=== PATIENT | male | born 1985 | race Two or more races ===

== ENCOUNTER 2024-02-25 09:35 | Outpatient (CLI) | payer OTHER, SELFPAY ==
--- OUTSIDE RECORDS SUMMARY | 2024-02-25 09:39 | XMS_ITS | Clinical Summary ---
Author Organization [employer] [facility] Address [place], [place] [address] Care Team Providers Care Shot Bagger Name Role Phone Clinic, [facility] Primary [facility] Pro vider Allergies No known active allergies Medications Medication Sig Dispensed Refills Start Date End Date Status omeprazole (PRILOSEC) 20 mg Delayed-Release capsuleIndications:O dynophagia Take 1 capsule by mouth once daily before a meal. 30 capsule 07/24/2016 Active ibuprofen (ADVIL; MOTRIN) 200 mg tablet Take 200 mg by mouth 4 times daily if needed. Active diazePAM (VALIUM) 10 mg tabletIndications:Ac zuni right-sided low back pain without sciatica Take 1 tablet by mouth every 6 hours if needed. 10 tablet 10/05/2016 Active ibuprofen (ADVIL; MOTRIN) 400 mg tabletIndications:Ac zuni right-sided low back pain without sciatica Take 1 tablet by mouth 4 times daily if needed. 30 tablet 10/05/2016 Active Social History Tobacco Use Types Packs/Day Years Used Date Smoking Tobacco: Every Day Tobacco Cessation:Ready to Q uit: No; Counseling Given: Yes Alcohol Use Standard Drinks/Week Comments No 0 (1 standard drink = 0.6 oz pur e alcohol) Sex and Gender Information Value Date Recorded Sex Assigned at Not on file Gender Identity Not on file Sexual Orientation Not on file Obstetrics History Last Filed Vital Signs Vital Sign Reading Time Taken Comments Blood Pressure 120/77 10/05/2016 7:41 AM CDT Pulse 98 10/05/2016 7:41 AM CDT Temperature 37.2 C (99 F) 10/05/2016 7:41 AM CDT Respiratory Rate 20 10/05/2016 7:41 AM CDT Oxygen Saturation 97% 10/05/2016 7:41 AM CDT Inhaled Oxygen Concentration - - Weight 70.3 kg (155 lb) 10/05/2016 7:41 AM CDT Height 167.6 cm (5' 6) 07/24/2016 5:43 PM CDT Body Mass Index 25.02 07/24/2016 5:43 PM CDT Plan of Treatment Health Maintenance Due Date Last Done Comments Tdap 1996 Depression screening for age 12+ 1997 HIV for age 15-65 2000 BMI (ht and wt on same day) for age 18+ 06/18/2003 Hepatitis C screening for ag e 18-79 06/18/2003 Tetanus booster 2005 Lipids for age 35-44 2020 COVID-19 vaccine series ( season) 2023 04/06/2021, 03/02/2021 Influenza for age 9-49 11/25/2023 Pneumococcal series for age 6-64 Aged Out No longer eligible b ased on patient's age to complete this topic Care Teams Shot Bagger Relationship Specialty Start Date End Date Clinic, [address] [id number] PCP - General 12/07/21
== END 2024-02-25 09:36 | disposition home or self-care (01) ==
PROVIDERS: Visit Provider Family Medicine
DX: Z11.3 Encounter for screening for infections with a predominantly sexual mode of transmission (principal)
CPT/HCPCS: 80061; 82947; 86703; 87491; 87591

== ENCOUNTER 2024-03-03 08:48 | Outpatient (CLI) | payer OTHER, SELFPAY | END 2024-03-03 08:49 | disposition home or self-care (01) | LOC: NFLDREF 03-05 23:53 | PROVIDERS: PCP Family Medicine; Referring Provider Family Medicine; Visit Provider Family Medicine | DX: Z13.220 Encounter for screening for lipoid disorders (principal); Z13.1 Encounter for screening for diabetes mellitus; Z11.4 Encounter for screening for human immunodeficiency virus [HIV] | CPT/HCPCS: 80061; 82947; 86703 ==

== ENCOUNTER 2024-04-17 10:20 | Outpatient (CLI) | payer OTHER, SELFPAY | END 2024-04-17 10:21 | disposition home or self-care (01) | PROVIDERS: PCP Family Medicine; Visit Provider Family Medicine | DX: H04.123 Dry eye syndrome of bilateral lacrimal glands (principal) | CPT/HCPCS: 84443; 86038; 86200; 86431 ==